=== PATIENT | male | born 1995 | race Caucasian/White ===

== ENCOUNTER 2017-05-19 17:30 | Emergency (ER) | payer SELFPAY ==
[~2017-05-19] VITALS: Ht 175.3 cm; Wt 61.5 kg
[~2017-05-19 17:30] MED LIST: IBUP-232 PO
[2017-05-19 17:41] VITALS: BP 124/74; PULSE 82; RESP 16; TEMP 98.7; O2SAT 98
--- NOTE | 2017-05-19 17:52 | PD ---
HPI Chief Complaint: Injury Time Seen by Provider: 17:46 Travel History International Travel<30 days: No Contact w/Intl Traveler<30days: No Traveled to known affect area: No History of Present Illness HPI This is a 22-year-old male here with a crush injury to the right third digit prior to arrival. Patient reports that he closed his finger in a door jam which caused a small laceration to the finger pad. He has had pain and swelling since. He reports normal sensation and full range of motion of the finger. Symptom severity is moderate. No aggravating or alleviating factors. [facility] Past Medical History Medical History: Denies Significant Hx Social History Alcohol Use: No Tobacco Use: No Substance Use: No Allergies-Medications (Allergen,Severity, Reaction): Coded Allergies: No Known Allergies (Unverified Adverse Reaction, Unknown, 05/19/17) Reported Meds & Prescriptions Reported Meds & Active Scripts Active No Active Prescriptions or Reported Medications Review of Systems Except as stated in HPI: all other systems reviewed are Neg Physical Exam Narrative GENERAL: Alert and well-appearing 22-year-old male SKIN: Warm and dry. 0.5CM superficial laceration to the finger pad. No active bleeding. HEAD: Normocephalic. EYES: No injection or drainage. NECK: Supple. MUSCULOSKELETAL: No cyanosis, or edema. Right upper extremity: Tenderness of the right third distal phalanx. Small 0.5 cm superficial laceration to the finger pad. No active bleeding. Patient can flex and extend all joints within the digit. Normal sensation. Brisk cap refill. Data Data Last Documented VS Vital Signs Date Time Temp Pulse Resp B/P (MAP) Pulse Ox O2 Delivery O2 Flow Rate FiO2 05/19/17 17:41 98.7 82 16 124/74 (91) 98 Orders Orders Finger (Ugb0pet) (05/19/17 ) [facility] Medical Decision Making Medical Screen Exam Complete: Yes Emergency Medical Condition: Yes Differential Diagnosis Crush injury, finger laceration, finger fracture Narrative Course 22-year-old male here with a crush injury to the right third digit. The extremity and digit is neurovascular intact. Superficial abrasion which does not need suturing. X-ray right finger: Negative for fracture Diagnosis Primary Impression: Crushing injury of finger of right hand Referrals: Primary Care Physician Additional Instructions: Ice and elevate the extremity. Cleansed the wound was soaked in water daily. Apply a thin layer of antibiotic ointment and cover with dressing. Follow-up with her primary doctor Scripts No Active Prescriptions or Reported Meds Disposition: 01 DISCHARGE HOME Condition: Stable Becka Nixon May 19, 2017 17:52
--- NOTE | 2017-05-19 18:28 | RADRPT ---
EXAM DATE/TIME: 05/19/2017 18:03 [place] COMPARISON: No previous studies available for comparison. INDICATIONS : Right hand, third digit pain post slamming in door. MEDICAL HISTORY : None. SURGICAL HISTORY : None. ENCOUNTER: Initial ACUITY: 1 day PAIN SCORE: 6/10 LOCATION: Right upper extremity FINDINGS: Examination of the third digit of the right hand demonstrates no evidence of fracture or dislocation. No radiopaque foreign bodies are seen. The soft tissues are intact. CONCLUSION: No acute fracture or joint dislocation. Eder Black MD on May 19, 2017 at 18:25 Board Certified Radiologist. This report was verified electronically.
== END 2017-05-19 19:02 | disposition home or self-care (01) ==
LOC: PHEFT 17:30
DX: S67.192A Crushing injury of right middle finger, initial encounter (principal); W23.0XXA Caught, crushed, jammed, or pinched between moving objects, initial encounter
CPT/HCPCS: 73140; 99283